=== PATIENT | female | born 1965 | race American Indian/Alaskan Native ===

== ENCOUNTER 2017-08-08 11:34 | Inpatient (IN) ==
[2017-08-03 18:29] LABS: Blood Urea Nitrogen 15 mg/dl (6-20)
[2017-08-03 18:36] LABS: Basophils # (Auto) 0 K/mcL (0.0-0.3); Basophils % (Auto) 0.4 % (0.0-2.0); Eosinophils # (Auto) 0.2 K/mcL (0.0-0.7); Eosinophils % (Auto) 2.7 % (0.0-7.0); Granulocytes % (Auto) 66.2 % (38.0-78.0); Lymphocytes # (Auto) 2.4 K/mcL (1.5-4.8); Lymphocytes % (Auto) 26.6 % (15.5-49.0); Mean Cell Volume 85.8 fL (80.0-100.0); Mean Corpuscular HGB Conc 33.4 g/dL (31.0-36.0); Mean Corpuscular Hemoglobin 28.6 pg (26.0-34.0); Monocytes # (Auto) 0.4 K/mcL (0.1-0.9); Monocytes % (Auto) 4.1 % (1.0-12.0); Platelet Count 349 K/mcL (140-440); RBC 4.72 M/mcL (4.00-5.20); Red Cell Distribution Width 13.9 % (11.5-14.5)
[2017-08-04 18:33] LABS: Appearance,Urine HAZY; Bilirubin,Urine NEG (NEG); Color,Urine YELLOW; Glucose,Urine (UA) NEGATIVE (NEG); Leukocyte Esterase,Urine NEG /uL (NEG); Nitrate,Urine NEG (NEG); Protein,Urine NEG (NEG); Specific Gravity,Urine 1.017 (1.000-1.035); Urine Blood NEG mg/dL (<0.03); Urobilinogen,Urine NEG (NEG)
[~2017-08-08 11:34] MED LIST: ACETAMINOPHEN 500 MG TABLET PO SCH; CELECOXIB 200 MG CAPSULE PO SCH; PREGABALIN 75 MG CAPSULE PO SCH; ceFAZolin 1 GM VIAL IV SCH; oxyCODONE 10 MG TAB.ER.12H PO SCH
[2017-08-08] MEDS ORDERED: SUCCINYLCHOLINE 20 MG/ML ML IV ONE (15:10)
[2017-08-08] MEDS ORDERED: ESMOLOL 100 MG/10 ML VIAL IV ONE (15:10)
[2017-08-08] MEDS ORDERED: PROPOFOL 200 MG/20 ML VIAL IV ONE (15:10)
[2017-08-08] MEDS ORDERED: TRANEXAMIC ACID 1,000 MG/10 ML VIAL IV ONE (15:10)
[2017-08-08] MEDS ORDERED: fentaNYL 100 MCG/2 ML VIAL IV ONE (15:10)
[2017-08-08] MEDS ORDERED: GLYCOPYRROLATE 0.2 MG/ML VIAL IV ONE (15:10)
[2017-08-08] MEDS ORDERED: LIDOCAINE HCL/PF 100 MG/5 ML SYRINGE IV ONE (15:10)
[2017-08-08] MEDS ORDERED: ONDANSETRON 4 MG/2 ML VIAL IV ONE (15:10)
[2017-08-08] MEDS ORDERED: BUPIVACAINE 0.5% 50 ML VIAL IJ ONE (15:10)
[2017-08-08] MEDS ORDERED: KETAMINE 100 MG/ML ML IV ONE (15:10)
[2017-08-08] MEDS ORDERED: MIDAZOLAM 5 MG/5 ML VIAL IV ONE (15:10)
[2017-08-08] MEDS ORDERED: GENTAMICIN SULFATE 800 MG/20 ML VIAL IR ONE (15:44)
[2017-08-08] MEDS ORDERED: METOPROLOL TARTRATE 5 MG/5 ML VIAL IV PRN (15:46)
[2017-08-08] MEDS ORDERED: METHOCARBAMOL 1,000 MG/10 ML VIAL IV PRN (15:46)
[2017-08-08] MEDS ORDERED: MEPERIDINE 25 MG/ML SYRINGE IV PRN (15:46)
[2017-08-08] MEDS ORDERED: ONDANSETRON 4 MG/2 ML VIAL IV PRN (15:46)
[2017-08-08] MEDS ORDERED: KETOROLAC 30 MG/ML VIAL IV PRN (15:46)
[2017-08-08] MEDS ORDERED: PROMETHAZINE 25 MG/ML VIAL IV PRN (15:46)
[2017-08-08] MEDS ORDERED: IPRATROPIUM/ALBUTEROL 3 ML AMPUL.NEB NEB PRN (15:46)
[2017-08-08] MEDS ORDERED: LACTATED RINGERS 1,000 ML IV SCH (16:00)
--- NOTE | 2017-08-08 16:54 | Brief Operative Note ---
Date of procedure: 08/08/17 Pre-op diagnosis: left shoulder djd Post-op diagnosis: same Procedure: left reverse tsa and bicep tenodesis Grafts/Implants: Yes Anesthesia: GETA Complications: none Surgeon: Keyur Gaytan [employer] Department Chair: Chris Leavitt Estimated blood loss (cc): 100 Specimens Removed/Pathology: none sent Condition: stable Disposition: PACU
[2017-08-08] MEDS ORDERED: HYDROmorphone 2 MG/ML SYRINGE IV PRN (16:55)
[2017-08-08] MEDS ORDERED: BENZOCAINE/MENTHOL 1 LOZENGE PO PRN (16:55)
[2017-08-08] MEDS ORDERED: MAGNESIUM HYDROXIDE 30 ML ORAL.SUSP PO PRN (16:55)
[2017-08-08] MEDS ORDERED: POLYETHYLENE GLYCOL 3350 17 GM PACKET PO PRN (16:55)
[2017-08-08] MEDS ORDERED: BISACODYL 10 MG SUPP.RECT PR PRN (16:55)
[2017-08-08] MEDS ORDERED: TRANEXAMIC ACID 1,000 MG/10 ML VIAL IV SCH (16:55)
[2017-08-08] MEDS ORDERED: FLEETS ADULT ENEMA PR PRN (16:55)
[2017-08-08] MEDS ORDERED: ACETAMINOPHEN 325 MG TABLET PO PRN (16:55)
[2017-08-08] MEDS ORDERED: 0.45 % SODIUM CHLORIDE 1,000 ML IV SCH (17:00)
[2017-08-08] MEDS: fentaNYL 100 MCG/2 ML VIAL IV PRN ×2 (17:20→17:30)
[2017-08-08] MEDS: 0.9 % SODIUM CHLORIDE 1,000 ML IV SCH (17:48)
--- NOTE | 2017-08-08 18:26 | XRay Report ---
CLINICAL INFORMATION: Post-Op Total Shoulder COMPARISON: None. FINDINGS: Total shoulder prostheses is anatomically aligned. No osseous abnormality. Soft tissues are normal. IMPRESSION: Negative Interpreted and Authenticated by: Gunner Rome 08/08/17
[2017-08-08] MEDS: KETOROLAC 15 MG/ML VIAL IV PRN (19:04)
[2017-08-08] MEDS ORDERED: SENNOSIDES 1 TABLET PO SCH (21:00)
[2017-08-08] MEDS ORDERED: TEMAZEPAM 15 MG CAPSULE PO PRN (21:00)
[2017-08-08] MEDS: DOCUSATE SODIUM 100 MG CAPSULE PO SCH (21:09)
[2017-08-08] MEDS: oxyCODONE/APAP 5/325MG TABLET PO PRN (21:10)
[2017-08-08] MEDS: ALBUTEROL SULFATE 1 PUFF INHALER INH SCH (21:12)
[2017-08-08] MEDS: FLUTICASONE HFA 44MCG INHALER INH SCH (21:12)
[2017-08-08] MEDS: Mometasone/Formoterol [Dulera 200 Mcg/5 Mcg Inhaler] INH SCH (21:13)
[2017-08-08] MEDS: 0.9 % SODIUM CHLORIDE 10 ML SYRINGE IV SCH (21:31)
[2017-08-08] MEDS: ONDANSETRON 4 MG/2 ML VIAL IV PRN (22:28)
[2017-08-08] MEDS: ceFAZolin 1 GM VIAL IV SCH (22:29)
[2017-08-09] MEDS: KETOROLAC 15 MG/ML VIAL IV PRN (01:23)
[2017-08-09] MEDS: oxyCODONE/APAP 5/325MG TABLET PO PRN ×3 (01:23→10:36)
[2017-08-09] MEDS: 0.9 % SODIUM CHLORIDE 1,000 ML IV SCH (04:28)
[2017-08-09] MEDS: ceFAZolin 1 GM VIAL IV SCH (04:29)
[2017-08-09] MEDS: 0.9 % SODIUM CHLORIDE 10 ML SYRINGE IV SCH (04:29)
[2017-08-09] MEDS: ONDANSETRON 4 MG/2 ML VIAL IV PRN (04:46)
--- NOTE | 2017-08-09 07:06 | Operative Note ---
DATE OF OPERATION: 08/08/2017 PREOPERATIVE DIAGNOSIS: Left shoulder degenerative arthritis. POSTOPERATIVE DIAGNOSIS: Left shoulder degenerative arthritis. PROCEDURE: Left reverse total shoulder with biceps tenodesis. SURGEON: Keyur Gaytan MD POLICE SHIFT COMMANDER: Chris Leavitt PA-C ANESTHESIA: General LMA anesthesia. COMPLICATIONS: None. ESTIMATED BLOOD LOSS: About 100 mL BLOOD PRODUCTS GIVEN: None. IMPLANTS: A Tornier size 3 stem with a 36 mm glenosphere, 2 mm eccentricity and a 6 mm poly insert. COMPLICATIONS: None. DESCRIPTION OF PROCEDURE: The patient was brought to the operating room and put to sleep with general LMA anesthesia. Once asleep a timeout was performed and the patient's left arm was confirmed as the operative side, both my initials and consent form, and x-rays. Once done, we then placed Ioban over the skin after being sterilely prepped and draped. We then performed a deltopectoral approach to the shoulder. Once this was done, we released the subscap, which was tagged. Once tagged we then exposed the joint and dislocated the humeral head. We then placed retractors and made our cut at its anatomical neck region. Once done with 20 degrees retroversion I then placed the stem. This was broached up to a size 3 and then subluxed post-interiorly. Once this was done, we then prepared the glenoid. We performed a 360-degree capsulotomy and released the remnants of the biceps tendon which was then tagged. We then placed a central pin and then reamed up to the size 30, placed at 23 mm Metaglene. We then used a glenosphere which was a 36 mm glenosphere with 2 mm of the eccentricity. This was tapped into place and locked with a screw. Once done, we irrigated thoroughly and then prepared the humerus. This was broached up previously with a size 3 component. We trialed the size 3 with a standard thickness poly which was 6 mm. This fit very nicely with full range of motion and stability. We tried the shuck test with no separation. This was plenty tight. We irrigated thoroughly and then implanted the final implant, a size 3 humeral stem, 6 mm poly which was reduced. This was very stable. We then repaired the subscap with #2 Ethibond on the upper proportion to the supraspinatus. We irrigated thoroughly and then closed the deltopectoral interval inspecting the cephalic vein to make sure that there was no bleeding, which there was not. This was kept intact. The muscle was in good condition. We then closed the fascial layer with 2-0 Vicryl and closed the skin with a deep layer of 2-0 Vicryl and then Marjorie's fascia and then 2-0 under the skin and then robert superficially. A DonJoy sling was fitted and given to the patient. RBH:nicky Job ID: [id number] Doc ID: [id number] Keyur Gaytan MD
--- NOTE | 2017-08-09 07:42 | Orthopedic Progress Note ---
Subjective Patient information: Note initiated : 08/09/17 at 7:41 am Service Date, if different from initiated Date: [] Patient: Reema Darling 52 y/o F admitted on 08/08/17 for Arthroplasty Shoulder Total Left Reverse. Chief Complaint: [Pt is stable this morning on post operative day 1 without any significant concerns or complaints. Patients vital signs have remained stable. Patients dressing is dry and exhibits a grossly intact neurovascular and neuromotor exam. Patients 10 point ROS is otherwise negative. ] Objective Vital signs: Vital Signs Temp Pulse Resp BP BP Pulse Ox 08/09/17 07:15 98 08/09/17 06:53 97.7 F 18 139/75 94 08/09/17 03:57 98.9 F 70 16 119/69 94 08/08/17 23:57 97.8 F 75 16 133/79 95 08/08/17 21:33 96 08/08/17 21:32 96 08/08/17 20:29 97.9 F 62 16 141/59 100 08/08/17 19:29 59 L 145/85 97 08/08/17 18:59 58 L 146/85 98 08/08/17 18:29 62 157/84 99 08/08/17 18:14 67 152/86 99 08/08/17 18:00 61 168/84 96 08/08/17 17:45 96.3 F L 65 16 165/94 98 08/08/17 17:35 97.7 F 72 16 143/61 99 08/08/17 17:20 97.7 F 74 16 128/54 99 08/08/17 17:10 97.7 F 73 16 134/66 99 08/08/17 17:05 97.7 F 78 16 171/96 100 08/08/17 17:00 97.7 F 77 14 167/91 100 08/08/17 16:55 97.7 F 81 14 159/96 100 08/08/17 16:50 97.7 F 84 14 148/85 100 08/08/17 11:45 97.7 F 131/73 94 Intake and Output 08/08/17 08/09/17 08/09/17 21:59 05:59 13:59 Intake Total 1240 / 1240 880 / 880 Output Total 1000 / 1000 Balance 1240 / 1240 -120 / -120 Intake: Oral 240 / 240 880 / 880 IV - Manual Only 1000 / 1000 Output: Void Amount 750 / 750 Emesis 250 / 250 Other: Meal Jello, Soup, crackers Percent of Meal Consumed 100% Feeding Ability Independent # Voids 1 Weight 270 lb Intake & Output: Intake & Output 08/08/17 08/09/17 08/09/17 21:59 05:59 13:59 Intake Total 1240 / 1240 880 / 880 Output Total 1000 / 1000 Balance 1240 / 1240 -120 / -120 Weight 270 lb Intake: Oral 240 / 240 880 / 880 IV - Manual Only 1000 / 1000 Output: Void Amount 750 / 750 Emesis 250 / 250 Other: Meal Jello, Soup, crackers Percent of Meal Consumed 100% Feeding Ability Independent # Voids 1 Incision: Yes healing Incision clean and dry: Yes Dressing: Yes clean, Yes dry Weight bearing status: full Neurological exam IM: Yes motor sensory intact, Yes neurovascular intact Extremities exam IM: Yes Foot pink and warm, Yes neurovascular intact - Labs CBC & BMP: 08/03/17 16:34 08/03/17 16:33 Labs: Orthopedic Labs 08/03/17 16:34 APTT 28 08/03/17 16:34 Hgb 13.5 Hct 40.5 Assessment and Plan (1) Hx of total shoulder replacement The patient has been educated regarding dressing care, Physical Therapy recommendations, home exercises, restrictions, and follow up appointments. The patient has had all necessary DME prescribed. The patient has remained stable during their hospital course. The patient was discharge with a stable exam. Status: Acute
--- NOTE | 2017-08-09 07:45 | Discharge Summary ---
Ortho Discharge - TSA - Patient Instructions Diet: Regular Diet Activity: activity as tolerated, weight bearing as tolerated Total Shoulder Protocol: Leave immobilizer in place except for bathing and ROM. Abduction pillow. Continue to wear sling until seen by physician. Codman Pendulum : These exercises use momentum produced by your body to move your shoulder joint. Bend your knees and shift your weight to your front leg, then back, allowing your arm to swing in the same directions. Using the same technique, alternately shift your weight between your right and left legs, allowing your arm to swing from side to side. These exercises are also performed in counterclockwise and clockwise circular motions. Typically these exercises are performed several times per day, for a set number repetitions or minutes, such as 20 times in a row or 5 minutes at a time. Dressing Care: May shower in 2 days, Aquacel Ag - leave on for 5 days Patient Education: Shoulder Arthroplasty (DC) - Problem Maintenance (1) Hx of total shoulder replacement Status: Acute - Follow Up Plan Follow Up Appointments: Chris Leavitt PA-C [Physician Engagement Quality Consultant] - 08/23/17 1:40 pm Disposition: Home, Self-Care Prognosis: Good Rehab Potential: Good I certify that the patient requires SNF services: No Overall status at discharge: patient is progressing back to baseline - Orders For Discharge Prescriptions: Docusate Sodium [Colace] 100 mg PO BID #60 cap oxyCODONE/APAP [Percocet 5-325 mg] 1 - 2 tab PO Q4HP PRN #75 tab PRN Reason: Pain Level 3-6
[2017-08-09] MEDS: DOCUSATE SODIUM 100 MG CAPSULE PO SCH (08:44)
[2017-08-09] MEDS: FLUTICASONE HFA 44MCG INHALER INH SCH (08:45)
[2017-08-09] MEDS: Mometasone/Formoterol [Dulera 200 Mcg/5 Mcg Inhaler] INH SCH (08:46)
[2017-08-09] MEDS: ALBUTEROL SULFATE 1 PUFF INHALER INH SCH (08:46)
[2017-08-09] MEDS ORDERED: HYDROCHLOROTHIAZIDE 25 MG TABLET PO SCH (09:00)
[2017-08-09] MEDS ORDERED: LISINOPRIL 5 MG TABLET PO SCH (09:00)
[2017-08-09] MEDS ORDERED: FLU VACC QS2017-18 36MOS UP/PF 60 MCG/0.5 ML SYRINGE IM ONE (10:00)
== END 2017-08-09 10:41 | disposition home or self-care (01) | DRG 483 ==
LOC: MEDSUR 11:34
PROVIDERS: ADMIT Orthopaedic Surgery; ATTEND Orthopaedic Surgery